=== PATIENT | female | born 1970 | race Two or more races ===

== ENCOUNTER → 2021-08-19 12:49 | Outpatient (CLI) | payer OTHER, SELFPAY ==
--- NOTE | 2021-08-19 15:26 | MM_ITS ---
PROCEDURE INFORMATION: Exam: Bilateral Screening 3D Mammography Exam date and time: 08/19/2021 3:26 PM Age: 51 years old Clinical indication: Encounter for screening mammogram for malignant neoplasm of breast TECHNIQUE: Imaging protocol: Bilateral screening tomosynthesis and 2D mammography including computer-aided detection (CAD) when performed. COMPARISON: Screening-Bilateral Mammography 02/07/2020 12:53 PM FINDINGS: MAMMOGRAPHY: Breast composition: The breasts are almost entirely fatty. Mass: None. Architectural distortion: None. Calcifications: No suspicious calcifications. Asymmetric density: None. Skin thickening: None. Axillary adenopathy: None. IMPRESSION: No mammographic evidence of malignancy. Annual screening is recommended unless otherwise clinically indicated. ASSESSMENT: BI-RADS Category 1: Negative
== END ==
PROVIDERS: PCP Family Medicine; Visit Provider Nurse Practitioner Obstetrics & Gynecology
DX: Z12.31 Encounter for screening mammogram for malignant neoplasm of breast (principal)
CPT/HCPCS: 77063; 77067

== ENCOUNTER → 2021-11-18 13:22 | Outpatient (POV) | payer OTHER, SELFPAY | PROVIDERS: Visit Provider Dermatology | DX: G47.30 Sleep apnea, unspecified (principal); R06.83 Snoring | CPT/HCPCS: 95806 ==

== ENCOUNTER → 2022-01-19 19:58 | Outpatient (CLI) | payer OTHER, SELFPAY | PROVIDERS: PCP Nurse Practitioner Family; Visit Provider Nurse Practitioner Family | DX: G47.30 Sleep apnea, unspecified (principal); R06.83 Snoring | CPT/HCPCS: 95810 ==

== ENCOUNTER → 2022-06-09 13:16 | Outpatient (CLI) | payer OTHER, SELFPAY ==
--- NOTE | 2022-06-09 13:22 | US_ITS ---
FINAL REPORT CLINICAL HISTORY: heavy bleeding FINDINGS: Transvaginal sonographic images of the pelvis were obtained. The uterus measures 8.7 x 3.7 x 5.3 cm. The endometrium is somewhat prominent measuring 9 mm. No uterine mass is identified. The right ovary measures 2.6 cm in length and left ovary measures 2.8 cm in length. Normal blood flow seen to the ovaries. Small cysts or follicles are noted in both ovaries with the largest on the right measuring 1.8 cm. There is no evidence of free fluid. IMPRESSION: Somewhat prominent endometrium. Small cysts or follicles in both ovaries up to 1.8 cm. Reviewed, Interpreted and Dictated by Teo Thompson III, MD Transcribed by Brook Wadsworht Authenticated and . [facility]
== END ==
PROVIDERS: PCP Nurse Practitioner Family; Visit Provider Obstetrics & Gynecology
DX: N93.9 Abnormal uterine and vaginal bleeding, unspecified (principal)
CPT/HCPCS: 76830

== ENCOUNTER → 2022-06-24 15:42 | Outpatient (CLI) | payer OTHER, SELFPAY ==
[2022-06-24 17:39] LABS: Thyroid Stimulating Hormone 0.65 uIU/mL (0.465-4.68)
[2022-06-26 12:44] LABS: Estradiol 47.1 pg/mL (.); FSH 13.9 mIU/mL (.)
== END ==
PROVIDERS: PCP Nurse Practitioner Family; Visit Provider Obstetrics & Gynecology
DX: E03.9 Hypothyroidism, unspecified (principal)
CPT/HCPCS: 36415; 82670; 83001; 84443

== ENCOUNTER → 2022-07-21 14:57 | Outpatient (POV) | payer OTHER, SELFPAY | PROVIDERS: Visit Provider Dermatology | DX: Z00.00 Encounter for general adult medical examination without abnormal findings (principal) ==

== ENCOUNTER → 2022-10-29 06:34 | Outpatient (CLI) | payer OTHER, SELFPAY ==
[2022-10-29 07:26] LABS: Basophils # 0.1 K/mm3 (0-0.2); Basophils % 1.5 % (0.1-2.0); Eosinophils # 0.2 K/mm3 (0.0-0.4); Hematocrit 43.5 % (37.0-47.0); Hemoglobin 13.9 g/dL (12.2-16.2); Lymphocytes # 1.6 K/mm3 (0.7-4.5); Mean Corpuscular HGB Conc 31.8 g/dL (31.8-35.4); Mean Corpuscular Hemoglobin 29.7 pg (27.0-31.2); Mean Corpuscular Volume 93.4 fl (81-99); Mean Platelet Volume 8.1 fl (7.4-10.4); Monocytes # 0.4 K/mm3 (0.1-1.0); Monocytes % 6.6 % (1.7-9.3); Neutrophils % 57.9 % (37.0-80.0); Platelet Count 281 K/mm3 (142-424); Red Blood Count 4.66 M/mm3 (4.20-5.40); Red Cell Distribution Width 13.5 % (11.5-17.5); White Blood Count 5.2 K/mm3 (4.8-10.8)
[2022-10-29 07:41] LABS: Chloride 108 mmol/L (98-107); Potassium 4.6 mmoL/L (3.5-5.1); Sodium 140 mmol/L (136-145)
[2022-10-29 07:44] LABS: Alanine Aminotransferase 23 U/L (12-78); Albumin Level 4.5 g/dl (3.5-5.0); Albumin/Globulin Ratio 1.4 (1.1-1.8); Alkaline Phosphatase 48 U/L (38-126); Anion Gap 6.6 mEq/L (5-15); Aspartate Amino Transferase 26 U/L (14-36); Bilirubin,Total 1.3 mg/dl (0.2-1.3); Blood Urea Nitrogen 16 mg/dl (7-17); Carbon Dioxide 30 mmol/L (22.0-30.0); Cholesterol 190 mg/dl (140-200); Estimated Glomerular Filt Rate 58 ml/min (>60); GFR (African American) 71 ML/MIN (>60); Globulin 3.3 g/dL (1.3-3.2); Total Protein,Serum 7.8 g/dl (6.3-8.2); Triglycerides 103 mg/dl (30-150); VLDL Cholesterol 21 mg/dL (0-40)
[2022-10-29 07:45] LABS: Calcium 9.1 mg/dl (8.4-10.2); Chol/HDL Ratio 3.3 (1-3.5); Glucose 125 mg/dl (74-100); HDL Cholesterol 58 mg/dl (40-60)
[2022-10-29 07:56] LABS: Direct LDL Cholesterol 94.91 mg/dL (100-129)
[2022-10-29 09:41] LABS: Free T4 (Free Thyroxine) 1.54 ng/dl (0.78-2.19)
[2022-10-29 09:45] LABS: 25-OH Vitamin D, Total 34.9 ng/mL (30-100)
[2022-10-29 09:58] LABS: Thyroid Stimulating Hormone 2.43 uIU/mL (0.465-4.68)
[2022-10-29 10:13] LABS: Hemoglobin A1C 6.9 % (4.0-6.0)
== END ==
PROVIDERS: PCP Emergency Medicine; Visit Provider Emergency Medicine
DX: E03.9 Hypothyroidism, unspecified (principal); N93.9 Abnormal uterine and vaginal bleeding, unspecified; N95.1 Menopausal and female climacteric states; E55.9 Vitamin D deficiency, unspecified
CPT/HCPCS: 36415; 80053; 80061; 82306; 83036; 84439; 84443; 85025

== ENCOUNTER → 2023-08-27 15:52 | Outpatient (CLI) | payer OTHER, SELFPAY ==
--- NOTE | 2023-08-27 15:52 | MM_ITS ---
PROCEDURE INFORMATION: Exam: MG Bilateral Screening 3D Mammography Exam date and time: 08/27/2023 3:39 PM Age: 53 years old Clinical indication: Screening examination; Additional info: Breast cancer screening TECHNIQUE: Imaging protocol: Bilateral Screening tomosynthesis and 2D mammography including computer-aided detection (CAD) when performed. COMPARISON: 1. MG MM DIG SCREENING MAMM BI W/CAD 08/19/2021 3:38 PM 2. MG Screening-Bilateral Mammography 02/07/2020 12:53 PM FINDINGS: MAMMOGRAPHY: Breast composition: The breasts are almost entirely fatty. Mass: None. Architectural distortion: None. Calcifications: No suspicious calcifications. Asymmetric density: None. Skin thickening: None. Axillary adenopathy: None. IMPRESSION: No mammographic evidence of malignancy. Annual screening is recommended unless otherwise clinically indicated. ASSESSMENT: BI-RADS Category 1: Negative
== END ==
PROVIDERS: PCP Internal Medicine; Visit Provider Internal Medicine
DX: Z12.31 Encounter for screening mammogram for malignant neoplasm of breast (principal)
CPT/HCPCS: 77063; 77067

== ENCOUNTER 2024-01-04 09:34 | Day surgery (SDC) | payer OTHER, SELFPAY ==
[2023-12-16 11:04] VITALS: BMI 34.0
[2024-01-04 09:49] VITALS: BP 166/90; PULSE 73; RESP 15; TEMP 36.2; O2SAT 100
[2024-01-04] MEDS: LACTATED RINGERS 1000ML 1,000 ML 25 ML IV (09:54)
--- NOTE | 2024-01-04 09:59 | P.PCN_ITS ---
Procedure: Date: 01/04/24 Patient Date of :: 1970 Procedure Performed:: Colonoscopy Indications:: Screening Performing Provider:: Ramesh Sánchez MD Referring Provider:: . Sedation:: Monitored anesthesia care Procedure:: After informed consent was obtained the patient was taken to the endoscopy suite. Sedation ensued after the patient was transferred to the left lateral decubitus position. Pulse, blood pressure, and oxygen saturation were monitored throughout the procedure. Digital rectal exam revealed no significant abnormality. The colonoscope was placed in position. The entire colon was eval uated. The colonoscope was carefully removed and the patient was transferred to recovery in stable condition. Please see findings and specimens below for detail. Findings:: Bowel preparation moderate Scattered sigmoid diverticulosis Mild to moderate tortuosity Significant spasticity/lack of relaxation Specimens:: None Recommendations:: Repeat colonoscopy in 2-3 years secondary to moderate bowel preparation, tortuosity, and spasticity/lack of relaxation. Complications:: No immediate Estimated blood obtained (mL): 0 Colonoscopy Component Colonoscopy Component Was a colonoscopy performed during today's procedure?: Yes Recommended follow up colonoscopy of at least 10 years?: No If no, follow up colonoscopy recommended in ___ years?: (See above) Reason for not recommending >/= 10 yr follow-up interval?: (See above)
[2024-01-04 10:24] LABS: Urine Pregnancy, HCG Qual. Negative (Negative)
[2024-01-04 10:31] VITALS: O2SAT 100
[2024-01-04 11:00] VITALS: BP 101/53; PULSE 104; RESP 18; TEMP 36.2; O2SAT 93
[2024-01-04 11:10] VITALS: BP 97/61; PULSE 73; RESP 18; O2SAT 98
[2024-01-04 11:20] VITALS: BP 92/63; PULSE 75; RESP 17; O2SAT 98
[2024-01-04 11:30] VITALS: BP 112/72; PULSE 75; RESP 18; O2SAT 99
[2024-01-05 12:02] LABS: POC Glucose,Bedside 85 (70-110)
== END 2024-01-04 11:50 | disposition home or self-care (01) ==
PROVIDERS: PCP Internal Medicine; Visit Provider Surgery
PROC: 0DJD8ZZ Inspection of Lower Intestinal Tract, Via Natural or Artificial Opening Endoscopic (ICD-10-PCS; CPT 45378; principal; 2024-01-04 10:30)
DX: Z12.11 Encounter for screening for malignant neoplasm of colon (principal); K57.30 Diverticulosis of large intestine without perforation or abscess without bleeding; K56.2 Volvulus; Z79.899 Other long term (current) drug therapy
CPT/HCPCS: 45378; 81025; 82962

== ENCOUNTER 2024-01-20 06:49 | Outpatient (CLI) | payer OTHER, SELFPAY ==
[2024-01-20 07:28] LABS: Basophils # 0.1 K/mm3 (0-0.2); Eosinophils # 0.1 K/mm3 (0.0-0.4); Eosinophils % 1.7 % (0.1-12.0); Hematocrit 42.2 % (37.0-47.0); Hemoglobin 13.7 g/dL (12.2-16.2); Lymphocytes # 1.3 K/mm3 (0.7-4.5); Lymphocytes % 20.7 % (10-50); Mean Corpuscular HGB Conc 32.5 g/dL (31.8-35.4); Mean Corpuscular Hemoglobin 31.7 pg (27.0-31.2); Mean Corpuscular Volume 97.6 fl (81-99); Monocytes # 0.4 K/mm3 (0.1-1.0); Monocytes % 6.2 % (1.7-9.3); Neutrophils # 4.4 K/mm3 (1.8-7.8); Neutrophils % 70.3 % (37.0-80.0); Platelet Count 245 K/mm3 (142-424); Red Blood Count 4.33 M/mm3 (4.20-5.40); Red Cell Distribution Width 14.5 % (11.5-17.5); White Blood Count 6.3 K/mm3 (4.8-10.8)
[2024-01-20 08:08] LABS: Alanine Aminotransferase 22 U/L (12-78); Albumin Level 4.1 g/dl (3.5-5.0); Albumin/Globulin Ratio 1.4 (1.1-1.8); Alkaline Phosphatase 52 U/L (38-126); Anion Gap 6.3 mEq/L (5-15); Aspartate Amino Transferase 26 U/L (14-36); Bilirubin,Total 1.5 mg/dl (0.2-1.3); Blood Urea Nitrogen 14 mg/dl (7-17); Calcium 9.7 mg/dl (8.4-10.2); Carbon Dioxide 32 mmol/L (22.0-30.0); Chloride 106 mmol/L (98-107); Chol/HDL Ratio 3.1 (1-3.5); Cholesterol 168 mg/dl (140-200); Estimated Glomerular Filt Rate 58 ml/min (>60); GFR (African American) 70 ML/MIN (>60); Globulin 2.9 g/dL (1.3-3.2); Glucose 99 mg/dl (74-100); HDL Cholesterol 54 mg/dl (40-60); Potassium 4.3 mmoL/L (3.5-5.1); Sodium 140 mmol/L (136-145); Triglycerides 79 mg/dl (30-150); VLDL Cholesterol 16 mg/dL (0-40)
[2024-01-20 08:23] LABS: Direct LDL Cholesterol 79.83 mg/dL (100-129)
[2024-01-20 08:51] LABS: Microalbumin/Creatinine Ratio 3.6
[2024-01-20 08:54] LABS: Creatinine,Urine Random 248 mg/dL (Not Estab.)
[2024-01-20 09:05] LABS: 25-OH Vitamin D, Total 48.5 ng/mL (30-100)
[2024-01-20 09:26] LABS: Hemoglobin A1C 5.2 % (4.0-6.0)
== END 2024-01-20 23:59 | disposition home or self-care (01) ==
LOC: LAB 06:50
PROVIDERS: PCP Internal Medicine; Visit Provider Internal Medicine
DX: E11.9 Type 2 diabetes mellitus without complications (principal); Z79.899 Other long term (current) drug therapy
CPT/HCPCS: 36415; 80053; 80061; 82043; 82306; 82570; 83036; 84439; 84443; 85025

== ENCOUNTER 2024-04-27 09:35 | Emergency (ER) | payer OTHER, SELFPAY ==
[2024-04-27 09:46] VITALS: BP 152/91; PULSE 70; RESP 16; TEMP 36.8; O2SAT 98; BMI 31.6
[2024-04-27 09:53] LABS: Apearance,Urine Clear (Clear); Bilirubin,Urine Negative (Negative); Blood, Urine Negative (Negative); Color,Urine Yellow (Yellow); Glucose,Urine (UA) Negative (Negative); Ketones,Urine Negative (Negative); Protein,Urine Negative (Negative); Specific Gravity, Urine 1.025 (1.005-1.030)
[2024-04-27 09:54] LABS: UTC Leukocyte Esterase,Urine Negative (Negative); UTC Nitrate,Urine Negative (Negative); Urobilinogen,Urine 0.2 EU/dl (0.2)
--- NOTE | 2024-04-27 10:10 | ED_ITS ---
Discharge Plan Disposition Patient Disposition: Home, Self-Care Condition: Good Prescriptions Prescriptions: New fluconazole 150 mg tablet 150 mg PO ONCE Qty: 1 3RF nitrofurantoin monohyd/m-cryst [Macrobid] 100 mg Capsule 100 mg PO BID Qty: 10 0RF Rx Instructions: must administer with a meal/food phenazopyridine [Pyridium] 200 mg tablet 200 mg PO Q8H 2 Days Qty: 6 0RF No Action cyclobenzaprine 10 mg tablet 10 mg PO HS PRN (Reason: muscle spasm) Qty: 30 2RF methocarbamol 500 mg tablet 500 mg PO BID PRN (Reason: Pain) (DME) blood-glucose meter Kit See Rx Instructions .ROUTE .MEDSUPPLY Qty: 1 0RF Rx Instructions: check BS once daily Ozempic 2 mg/dose (8 mg/3 mL) pen injector See Rx Instructions .ROUTE .COMPLEX Qty: 3 5RF Dose Instruction: DIAL AND INJECT UNDER THE SKIN 2 MG WEEKLY Rx Instructions: DIAL AND INJECT UNDER THE SKIN 2 MG WEEKLY metformin 500 mg tablet extended release 24 hr 500 mg PO DAILY Qty: 90 1RF ergocalciferol (vitamin D2) 1,250 mcg (50,000 unit) capsule 1,250 mcg PO WEEKLY Qty: 14 0RF levothyroxine 125 mcg tablet 125 mcg PO DAILY Qty: 90 0RF Referrals Follow up/Referrals: Cristiano Quezada DO [Primary Care Provider] - See instructions Activity Restrictions/Add. Instructions Additional Instructions/Restrictions: Drink plenty of fluids. Take tylenol or ibuprofen for pain or fever. Take the medications as directed. Follow up with your regular doctor. GO TO THE ER FOR ANY WORSENING SYMPTOMS We will culture the urine. That will tell what bacteria is causing your infection and which antibiotics will treat it best. Sometimes the first antibiotic we prescribe turns out to not work against different bacteria. So, make sure you follow up within 3 days if you are not getting better. Clinical Impressions Clinical Impression: Yeast infection Instructions Patient Instructions: Vaginal Yeast Infection, Nitrofurantoin, Fluconazole Print Language Print Language: Danish Discharge ED Provider: Flip Jean [facility] [place] HPI General Stated complaint: pain and frequent urination Mode of Arrival: Ambulatory Source of Information: Patient Limitations: No Limitations Time Seen by Provider: 04/27/24 09:42 Description of Symptoms (Recalled from Triage Doc. by RN): pt c/o urinary frequency and burning with urination. pt denies vaginal d/c or abd pain. pt states this has been ongoing x3d. HEENT Symptoms (Recalled from RN notes): No Resp Symptoms (Recalled from RN notes): No Skin Symptoms (Recalled from RN notes): No MS Symptoms (Recalled from RN notes): No Functional Status (Recalled from RN notes): wnl History of Present Illness Provider Complaint: She states that for the past 3 days she has had dysuria. Related Data Home Medications ?Medication ?Instructions ?Recorded ?Confirmed methocarbamol 500 mg tablet 500 mg PO BID PRN Pain 09/28/23 01/04/24 Previous Rx's ?Medication ?Instructions ?Recorded blood-glucose meter #1 ea 10/30/22 cyclobenzaprine 10 mg tablet 10 mg PO HS PRN muscle spasm #30 08/25/23 tabs ergocalciferol (vitamin D2) 1,250 1,250 mcg PO WEEKLY #14 caps 02/17/24 mcg (50,000 unit) capsule metformin 500 mg tablet,extended 500 mg PO DAILY #90 tabs 02/17/24 release 24 hr semaglutide 2 mg/dose (8 mg/3 mL) See Rx Instructions .Route 02/17/24 subcutaneous pen injector (Ozempic) .COMPLEX #3 mL levothyroxine 125 mcg tablet 125 mcg PO DAILY #90 tabs 03/22/24 fluconazole 150 mg tablet 150 mg PO ONCE 1 dose #1 tab 04/27/24 nitrofurantoin 100 mg PO BID #10 caps 04/27/24 monohydrate/macrocrystals 100 mg capsule (Macrobid) phenazopyridine 200 mg tablet 200 mg PO Q8H 2 days #6 tabs 04/27/24 (Pyridium) Allergies Allergy/AdvReac Type Severity Reaction Status Date / Time meperidine [From Demerol] Allergy Vomiting Verified 01/04/24 09:45 Worker's Comp Is this a Worker's Comp case?: No [facility] Disclaimer: The information contained in this section may have been updated after the patient was seen, as this information can be updated by other users. Medical History Abnormal uterine bleeding History of LEEP (loop electrosurgical excision procedure) of cervix complicating Hot flashes, menopausal Hypothyroidism Surgical History History of delivery, antepartum History of cholecystectomy History of rhinoplasty Family History Other Cancer Diabetes Social History Smoking Status: Never smoker alcohol intake: never current occupational status: employed Travel in the last 8 weeks: None ROS Obtained: Yes All systems reviewed & no additional complaints except as documented Constitutional Constitutional: Reports system reviewed and no additional complaints, except as documented, Denies chills and Denies fever(s) Eyes Eyes: Denies eye discharge ENT Ears, Nose, Mouth, and Throat: Denies dysphagia, Denies sore throat and Denies throat swelling Cardiovascular Cardiovascular: Denies chest pain and Denies dyspnea Respiratory Respiratory: Denies chest congestion, Denies cough and Denies dyspnea Gastrointestinal Gastrointestingal: Denies abdominal pain, constipation, diarrhea, dysphagia, nausea or vomiting Genitourinary Female Genitourinary: Reports as per HPI, Reports dysuria, Denies urinary frequency, Denies urinary incontinence, Denies urinary hesitancy and Denies urinary urgency Musculoskeletal Musculoskeletal: Denies arthralgias and Reports back pain Integumentary/Breasts Skin/Breast: Denies rash Neurologic Neurologic: Denies paresthesias Allergic/Immunologic Allergic/Immunologic: Denies throat swelling Physical Exam General General appearance: alert and in no apparent distress Head Head exam: atraumatic, normocephalic and normal inspection Eye Eye exam: Present normal appearance, PERRL and EOMI ENT ENT exam: Present normal exam, normal oropharynx, mucous membranes moist, TM's normal bilaterally and normal external ear exam Neck Neck exam: Present normal inspection, full ROM and trachea midline; Absent meningismus or lymphadenopathy Chest Chest inspection: Present normal inspection and symmetric chest wall rise; Absent tenderness Respiratory Respiratory exam: Present normal lung sounds bilaterally; Absent respiratory distress Cardiovascular Cardiovascular exam: Present regular rate and normal rhythm; Absent JVD Abdominal Exam Abdominal exam: Present soft and normal bowel sounds; Absent distention, tenderness or guarding Extremities Exam Extremities exam: Present normal inspection, full ROM and normal capillary refill; Absent calf tenderness Back Exam Back exam: Present normal inspection; Absent tenderness Neurological Exam Neurological exam: Present alert and oriented X3 Psychiatric Psychiatric exam: Present normal affect and normal mood Skin Skin exam: Present warm, dry, intact and normal color Lymphatic Lymphatic Findings: no adenopathy Medical Decision Making Medical Records Medical records reviewed: No I reviewed the patient's medical records. Francesco Inquiry Pt receiving controlled substance: No Vital Signs: 04/27/24 09:46 Temperature 98.2 F Temperature Source Oral Pulse Rate [Left] 70 Respiratory Rate 16 Blood Pressure [Right Arm] 152/91 H Blood Pressure Mean [Right Arm] 111 Blood Pressure Source [Right Arm] Automatic Cuff Blood Pressure Position [Right Arm] Sitting 02 Sat by Pulse Oximetry 98 Oxygen Delivery Method Room Air Lab Data Lab results reviewed: Yes I reviewed the patient's lab results. Lab Results 04/27/24 09:52: Urine Color Yellow, Urine Appearance Clear, Urine pH 5.0, Ur Specific [place] 1.025, Urine Protein Negative, Urine Glucose (UA) Negative, Urine Ketones Negative, Urine Blood Negative, Urine Nitrate Negative, Urine Bilirubin Negative, Urine Urobilinogen 0.2, Ur Leukocyte Esterase Negative Orders (Tests/Meds): ORDERS Category Date Time Status Urine Culture Stat Micro 04/27/24 09:48 Received
[2024-04-27 10:29] VITALS: BP 0/0; PULSE 0; RESP 0; TEMP -17.7; TEMP 0
== END 2024-04-27 10:30 | disposition home or self-care (01) ==
PROVIDERS: Emergency Provider Nurse Practitioner Family; PCP Internal Medicine
DX: B37.31 Acute candidiasis of vulva and vagina (principal); R30.0 Dysuria; R35.0 Frequency of micturition
CPT/HCPCS: 81003; 87086; 99204; 99212; G0463

== ENCOUNTER 2024-06-16 07:31 | Outpatient (CLI) | payer OTHER, SELFPAY ==
--- NOTE | 2024-06-16 07:35 | XR_ITS ---
FINAL REPORT CLINICAL HISTORY: Left shoulder pain COMPARISON: None FINDINGS: LEFT SHOULDER 3 views of the left shoulder were obtained. There is no acute fracture or dislocation. Visualized joint spaces are normally aligned. Soft tissues are unremarkable. IMPRESSION: No acute bony abnormality. Reviewed, Interpreted and Dictated by Junior Valdes MD Transcribed by Hue Ly Authenticated and [facility]
== END 2024-06-16 23:59 | disposition home or self-care (01) ==
LOC: RAD 07:32
PROVIDERS: PCP Internal Medicine; Visit Provider Internal Medicine
DX: M25.512 Pain in left shoulder (principal)
CPT/HCPCS: 73030

== ENCOUNTER 2024-06-20 14:27 | Outpatient (CLI) | payer OTHER, SELFPAY ==
--- NOTE | 2024-06-20 15:18 | MR_ITS ---
FINAL REPORT TECHNIQUE: Multiplanar MR without contrast CLINICAL HISTORY: rotator cuff injury FINDINGS: Marrow signal: Unremarkable Glenohumeral joint: Physiologic effusion. No significant degenerative changes. AC joint: There are mild hypertrophic changes. Minimal rotator cuff impingement is identified. There is subacromial bursitis. Rotator cuff: High-grade partial tear at the undersurface of the distal infraspinatus tendon. Remaining rotator cuff intact. Labrum: Normal morphology without tear Biceps tendon: Intra-articular long head biceps tendon intact. IMPRESSION: Partial tear of the infraspinatus tendon. Subacromial bursitis. Reviewed, Interpreted and Dictated by Zan Curtis MD Transcribed by Vanessa Martinez Authenticated and [facility]
== END 2024-06-20 23:59 | disposition home or self-care (01) ==
LOC: RAD 14:27
PROVIDERS: PCP Internal Medicine; Visit Provider Internal Medicine
DX: M25.512 Pain in left shoulder (principal)
CPT/HCPCS: 73221

== ENCOUNTER 2024-07-21 14:00 | Outpatient (RCR) | payer OTHER, SELFPAY | END 2024-07-21 23:59 | disposition home or self-care (01) | LOC: OT 14:00 | PROVIDERS: Visit Provider Internal Medicine | DX: M25.512 Pain in left shoulder (principal) | CPT/HCPCS: 97014; 97035; 97140; 97165; 97530; G0283 ==

== ENCOUNTER 2025-02-09 15:49 | Outpatient (CLI) | payer OTHER, SELFPAY ==
--- NOTE | 2025-02-09 15:51 | XR_ITS ---
FINAL REPORT CLINICAL HISTORY: abd pain pt states upper abd pain COMPARISON: None FINDINGS: SINGLE VIEW ABDOMEN A single view of the abdomen was obtained. There is a nonobstructive bowel gas pattern. There are no abnormally dilated loops of small bowel. No abnormal calcifications are identified. IMPRESSION: Nonobstructive bowel gas pattern. Reviewed, Interpreted and Dictated by Junior Valdes MD Transcribed by Hue Ly Authenticated and [facility]
[2025-02-09 17:23] LABS: Albumin Level 4.4 g/dl (3.5-5.0); Chloride 105 mmol/L (98-107); Potassium 4.2 mmoL/L (3.5-5.1); Sodium 137 mmol/L (136-145)
[2025-02-09 17:26] LABS: Alanine Aminotransferase 25 U/L (12-78); Albumin/Globulin Ratio 1.6 (1.1-1.8); Alkaline Phosphatase 59 U/L (38-126); Anion Gap 8.2 mEq/L (5-15); Aspartate Amino Transferase 26 U/L (14-36); Bilirubin,Total 1.2 mg/dl (0.2-1.3); Blood Urea Nitrogen 18 mg/dl (7-17); Carbon Dioxide 28 mmol/L (22.0-30.0); Estimated Glomerular Filt Rate 58 ml/min (>60); GFR (African American) 70 ML/MIN (>60); Globulin 2.8 g/dL (1.3-3.2); Lipase 297 U/L (23-300); Total Protein,Serum 7.2 g/dl (6.3-8.2)
[2025-02-09 17:27] LABS: Calcium 9.2 mg/dl (8.4-10.2); Glucose 104 mg/dl (74-100)
[2025-02-09 17:33] LABS: C-Reactive Protein 1.7 mg/L (0-4)
== END 2025-02-09 23:59 | disposition home or self-care (01) ==
LOC: LAB 15:50
PROVIDERS: PCP Internal Medicine; Visit Provider Internal Medicine
DX: R10.9 Unspecified abdominal pain (principal)
CPT/HCPCS: 74018; 80053; 83690; 86140

== ENCOUNTER 2025-07-26 15:35 | Outpatient (CLI) | payer OTHER, SELFPAY ==
--- NOTE | 2025-07-26 16:30 | MM_ITS ---
PROCEDURE INFORMATION: Exam: MG Bilateral Screening 3D Mammography Exam date and time: 07/26/2025 4:10 PM Age: 54 years old Clinical indication: Screening. Her paternal grandmother had breast cancer. TECHNIQUE: Imaging protocol: Bilateral Screening tomosynthesis and 2D mammography including computer-aided detection (CAD) when performed. COMPARISON: 1. MG MM DIG SCREENING MAMM BI W/CAD 08/27/2023 3:39 PM 2. MG MM DIG SCREENING MAMM BI W/CAD 08/19/2021 3:38 PM 3. MG Screening-Bilateral Mammography 02/07/2020 12:53 PM FINDINGS: MAMMOGRAPHY: Breast composition: The breasts are almost entirely fatty. Mass: None. Architectural distortion: None. Calcifications: No suspicious calcifications. Asymmetric density: None. Skin thickening: None. Axillary adenopathy: None. IMPRESSION: No mammographic evidence of malignancy. Annual screening is recommended unless otherwise clinically indicated. ASSESSMENT: BI-RADS Category 1: Negative.
== END 2025-07-26 23:59 | disposition home or self-care (01) ==
LOC: RAD 15:35
PROVIDERS: PCP Internal Medicine; Visit Provider Internal Medicine
DX: Z12.31 Encounter for screening mammogram for malignant neoplasm of breast (principal); R92.313 Mammographic fatty tissue density, bilateral breasts; Z80.3 Family history of malignant neoplasm of breast
CPT/HCPCS: 77063; 77067